=== PATIENT | male | born 1940 | race Caucasian/White ===

== ENCOUNTER → 2019-01-14 | Outpatient (CLI) | payer OTHER, MEDICARE ==
[~2019-01-14] VITALS: Ht 182.9 cm; Wt 81.7 kg
[~2019-01-14] MED LIST: ACID REDUCER200 MG PO; FLOMAX0.4 MG PO; GAVISCON TABLE1 EACH PO; MOBIC15 MG PO; TYLENOL EXTRA500 MG PO
--- NOTE | 2019-01-15 13:07 | PATH ---
[facility] [place] [address] PATHOLOGY RPT PROCEDURE Name: ANIVAL GARCIA Room #: REG [facility] [place].#: [id number] ������������������ Admission: 01/14/19 ������������������ Date of : 42 Discharge: Report #: [id number] Path Case #: [id number] [facility] Accession Number: [id number] . 01 Material submitted: . colon - BX POLYP AT PROXIMAL ASCENDING COLON. Modifiers: proximal, ascending . 01 Clinical history: . Pre-OP DX: Hx polyps Post-OP DX: Colon polyp, diverticulosis, hemorrhoids . 02 Diagnosis: Polyp, at proximal ascending colon, endoscopic biopsy: - Tubular adenoma. - Negative for high-grade dysplasia. (IUV:pit 01/15/2019) QTP/01/15/2019 . 02 Electronically signed: . Chelsey Fall MD, Pathologist NPI- [id number] . 01 Gross description: . Received in formalin labeled "Anival Garcia, BX polyp at proximal ascending colon," is a single segment of charles soft tissue measuring 0.4 cm in maximum dimension. The specimen is entirely submitted in cassette A1. (TSD; 01/14/2019) TOB/TOB . 02 Pathologist provided ICD-10: D12.2 . 02 CPT . 973960 Specimen Comment: A courtesy copy of this report has been sent to Specimen Comment: [phone], . Specimen Comment: Report sent to / DR DAVIS Performed at: [address], [place] [id number] MD Umang Crystal MD Phone: [phone] Performed at: [address] [id number] MD Chelsey Fall MD Phone: [phone]
--- NOTE | 2019-01-16 11:42 | P ---
[facility] [place] [address] [place] [address] PROCEDURE REPORT Name: APRYL GARCIA Room #: REG [facility]#: [id number] Admission: 01/14/19 ������������������ Attend Phys: Zeferino Root MD Discharge: ������������������ Date of : 42 Report #: [id number] THIS REPORT FOR: //name// CC: Zeferino Luke MD OUTPATIENT COLONOSCOPY REPORT BRIEF HISTORY: The patient is a 78-year-old male with a history of colon polyp removed more than 10 years ago. Also, his mother had colon cancer, but she was 90 at the time of diagnosis. PREOPERATIVE DIAGNOSIS: High risk screening colonoscopy. POSTOPERATIVE DIAGNOSES: 1. Diminutive polyp, proximal ascending colon. 2. Moderate left-sided diverticulosis coli. 3. Small internal hemorrhoids. MEDICATIONS: Deep sedation with propofol per anesthesia. SPECIMEN: Polyp from ascending colon. ESTIMATED BLOOD LOSS: 3 mL. PROCEDURE: Colonoscopy to cecum and terminal ileum with biopsy. FINDINGS: Prior to propofol sedation, procedure of colonoscopy discussed with the patient as well as potential risks and its complications. He indicates he understands and desires to proceed. DESCRIPTION OF PROCEDURE: With the patient in left lateral decubitus position, digital examination was completed, which revealed no abnormalities. Subsequently, the Olympus video colonoscope was introduced in the rectum, advanced under direct vision to the cecum. Done with minimal difficulty. The cecum was identified by the ileocecal valve and the appendiceal orifice. I was able to advance the tip of the scope to the mouth of the ileocecal valve, but could not deeply intubate the ileum due to looping of the scope. At that point, the scope was slowly withdrawn and careful circumferential views obtained. The prep was good. The mucosa was within normal limits, normal vascular pattern and normal light reflex. As we withdrew the scope, he was found to have a diminutive polyp in the proximal ascending colon, which was removed with biopsy forceps. The scope was further withdrawn and no additional neoplastic lesions were seen. As the scope was withdrawn into the left colon, he was noted to have moderately severe diverticular disease without endoscopic evidence of diverticulitis. The scope was withdrawn in the rectum, no abnormalities were [facility] [address] [place] [address] PROCEDURE REPORT Name: APRYL GARCIA Room #: REG [facility]#: [id number] Admission: 01/14/19 ������������������ Attend Phys: Zeferino Root MD Discharge: ������������������ Date of : 42 Report #: [id number] seen. However, upon retroflexion, small hemorrhoids were seen. The scope was withdrawn. The patient tolerated the procedure well. CONDITION OF THE PATIENT UPON DISCHARGE: Following procedure, the patient was drowsy, arousable and conversant and will be discharged home when fully ambulatory. INSTRUCTIONS TO THE PATIENT AND FAMILY AT THE TIME OF DISCHARGE: We will follow up on the path and make further recommendations. If this is an adenoma, he should return in 5 years. If this is hyperplastic, no followup will be needed at this point in life. He will return to the care of Dr. Louie Luke and return to see me as needed. ��������������������������������������������� <ELECTRONICALLY SIGNED> ���������������������������������������� By: Zeferino Root MD ��������������������������������������������� 01/16/19 1142 [id number] Zeferino Root MD /nt
== END | disposition home or self-care (01) ==
LOC: GI 07:44
DX: Z12.11 Encounter for screening for malignant neoplasm of colon (principal); Z86.010 Personal history of colon polyps; Z80.0 Family history of malignant neoplasm of digestive organs; D12.2 Benign neoplasm of ascending colon; K57.30 Diverticulosis of large intestine without perforation or abscess without bleeding; K64.8 Other hemorrhoids; M16.11 Unilateral primary osteoarthritis, right hip; Z98.890 Other specified postprocedural states; Z87.891 Personal history of nicotine dependence; Z79.899 Other long term (current) drug therapy
CPT/HCPCS: 62110; 62900

== ENCOUNTER → 2020-04-14 | Outpatient (CLI) | payer OTHER, MEDICARE | LOC: LAB 09:45 | PROVIDERS: ATTEND Family Medicine | DX: R05 Cough (principal); Z20.828 Contact with and (suspected) exposure to other viral communicable diseases ==